=== PATIENT | female | born 1940 | race Caucasian/White ===

== ENCOUNTER → 2019-09-23 | Outpatient (CLI) | payer MEDICARE | END | disposition home or self-care (01) | LOC: CVU 12:54 | PROVIDERS: ATTEND Internal Medicine Cardiovascular Disease | DX: I08.2 Rheumatic disorders of both aortic and tricuspid valves (principal); I10 Essential (primary) hypertension; E11.9 Type 2 diabetes mellitus without complications; Z87.891 Personal history of nicotine dependence | CPT/HCPCS: 93306 ==

== ENCOUNTER 2019-10-28 14:06 | Outpatient (CLI) | payer MEDICARE | END 2019-10-28 23:59 | disposition home or self-care (01) | LOC: CFH 14:06 | PROVIDERS: ATTEND Internal Medicine Cardiovascular Disease | DX: I10 Essential (primary) hypertension (principal); R60.9 Edema, unspecified; E11.9 Type 2 diabetes mellitus without complications | CPT/HCPCS: 78452; 93017; A9502 ==